=== PATIENT | female | born 1990 | race Caucasian/White ===

== ENCOUNTER 2017-04-06 10:54 | Emergency (ER) | payer SELFPAY ==
--- NOTE | 2017-04-06 14:00 | ULT ---
OBSTETRIC SONOGRAM HISTORY: Pelvic pain. Early . Bleeding. FINDINGS: Multiple transabdominal sonographic views of a gravid uterus show a single intrauterine gestation in cephalic presentation. [place]-rump length correlates with 8 weeks 5 days ge stational age, giving an estimated date of delivery of 11/11/2017. No heart motion is visualiz ed. Each ovary has a normal appearance with follicles and demonstrate good color and spectral Doppler kandace w. IMPRESSION: Intrauterine demise. POS: BETY
== END 2017-04-06 13:15 | disposition home or self-care (01) ==
LOC: MADERS 10:54
DX: O20.0 Threatened abortion (principal)
CPT/HCPCS: 36415; 76815; 84702; 86900; 86901

== ENCOUNTER 2019-02-15 14:10 | Emergency (ER) | payer BC | END 2019-02-15 15:07 | disposition home or self-care (01) | LOC: MADERS 14:10 | DX: S16.1XXA Strain of muscle, fascia and tendon at neck level, initial encounter (principal); S80.01XA Contusion of right knee, initial encounter; G43.909 Migraine, unspecified, not intractable, without status migrainosus; F41.9 Anxiety disorder, unspecified; Z79.899 Other long term (current) drug therapy; V59.49XA Driver of pick-up truck or van injured in collision with other motor vehicles in traffic accident, initial encounter | CPT/HCPCS: 99283 ==